=== PATIENT | male | born 1950 | race African-American/Black ===

== ENCOUNTER 2021-04-15 13:55 | Emergency (ER) | payer MEDICARE, OTHER ==
[~2021-04-15] VITALS: Ht 180.3 cm; Wt 114.0 kg
[2021-04-15] MEDS ORDERED: HYDROCODONE/ACETAMINOPHEN 5/325MG TABLET PO ONE (15:45)
[2021-04-15] MEDS ORDERED: TETANUS, DIPHTHERIA, PERTUSSIS VAC/PF 0.5ML (>10YR OLD) IM ONE (15:45)
[2021-04-15 16:03] VITALS: BP 137/70
[2021-04-15] MEDS ORDERED: BO1 TP (17:15)
[2021-04-15] MEDS ORDERED: CEPH500T MT (17:15)
[2021-04-15] MEDS ORDERED: BACITRACIN 15GM TUBE TOP ONE (17:30)
[2021-04-15] MEDS ORDERED: BACITRACIN ZINC OINT UDPKT TOP NR (17:30)
== END 2021-04-15 17:49 | disposition home or self-care (01) ==
LOC: ER 13:55
DX: S91.202A Unspecified open wound of left great toe with damage to nail, initial encounter (principal); I89.0 Lymphedema, not elsewhere classified; X58.XXXA Exposure to other specified factors, initial encounter; Y93.89 Activity, other specified; Y92.89 Other specified places as the place of occurrence of the external cause; Y99.8 Other external cause status; Z98.890 Other specified postprocedural states
CPT/HCPCS: 73620; 90471; 90715; 99283

== ENCOUNTER 2021-07-28 09:03 | Inpatient (IN) | payer MEDICARE, OTHER ==
[~2021-07-28] VITALS: Ht 170.2 cm; Wt 81.0 kg
[~2021-07-28 09:03] MED LIST: BO1 TP; MIDO5TAB4 PO; PETR85OI TOP; PRED5TAB PO; TC025U80 TOP; TRAM50TA94 MT
[2021-07-28] MEDS ORDERED: ACETAMINOPHEN 325MG TABLET PO ONE (09:45)
[2021-07-28] MEDS ORDERED: KETOROLAC 60MG/2ML VIAL IM ONE (09:45)
[2021-07-28] MEDS: LIDOCAINE 5% PATCH TOP SCH (10:13)
[2021-07-28] MEDS ORDERED: MORPHINE SULFATE 4 MG/ML CPJ (NOT FOR IM USE) IV ONE (12:30)
[2021-07-28 13:06] LABS: HEMATOCRIT. 27.4 % (42.0-52.0); MEAN CORPUSCULAR VOLUME 97.6 fL (80.0-94.0); MEAN PLATELET VOLUME 7.2 fl (7.4-10.4); PLATELET 218 x1000/uL (130-400); RED BLOOD CELL COUNT 2.81 mill/uL (4.7-6.1); RED CELL DISTRIBUTION WIDTH 15.4 % (11.6-14.6)
[2021-07-28 13:16] LABS: INR 1.3; PROTHROMBIN TIME 13.6 sec (9.6-11.0)
[2021-07-28 13:46] LABS: PLATELET ESTIMATE NORMAL
[2021-07-28 13:51] LABS: CHLORIDE 114 mEq/L (98-107)
[2021-07-28] MEDS ORDERED: POTASSIUM CHLORIDE INJ 40 MEQ in DEXT 5% WATER 250 ML IV ONE (18:45)
[2021-07-28] MEDS ORDERED: LACTATED RINGERS 1,000 ML IV SCH (18:45)
[2021-07-28] MEDS ORDERED: DOCUSATE SODIUM 100MG CAPSULE PO PRN (18:45)
[2021-07-28] MEDS ORDERED: PIPERACILLIN/TAZ 3.375G PREMIX 50 ML IV SCH (18:45)
[2021-07-28] MEDS ORDERED: GUAIFENESIN 200MG/10ML SUGAR FREE UDC PO PRN (18:45)
[2021-07-28] MEDS ORDERED: NALOXONE HCL 0.4MG/ML VIAL IV PRN (18:45)
[2021-07-28] MEDS ORDERED: ONDANSETRON HCL 4MG/2ML INJ IV PRN (18:45)
[2021-07-28] MEDS ORDERED: IPRATROPIUM/ALBUTEROL 0.5-3(2.5)MG/3ML NEB HHN PRN (18:45)
[2021-07-28] MEDS: KCL 20MEQ/100ML X 2 FOR TOTAL KCL 40MEQ/200ML IV SCH ×2 (19:40→21:32)
[2021-07-28 22:00] VITALS: BP 106/49
[2021-07-28] MEDS: LACTATED RINGERS 1,000 ML IV SCH (22:45)
[2021-07-29] VITALS: BP 102/55
[2021-07-29] MEDS: MORPHINE SULFATE 2 MG/ML CPJ (NOT FOR IM USE) IV PRN (02:58)
[2021-07-29 04:00] VITALS: BP 96/55
[2021-07-29] MEDS ORDERED: HEPARIN BOLUS PRN aPTT 37-44 IV (06:45)
[2021-07-29] MEDS ORDERED: HEPARIN BOLUS PRN aPTT <36 IV (06:45)
[2021-07-29] MEDS ORDERED: HEPARIN 80 UNITS/KG BOLUS IV SCH (06:45)
[2021-07-29] MEDS ORDERED: HEPARIN 25,000 UNITS PREMIX 250 ML IV SCH (06:45)
[2021-07-29] MEDS: PIPERACILLIN/TAZOBACTAM 3.375G in DEXT 5% WATER 50ML IV SCH ×2 (06:54→22:00)
[2021-07-29 08:00] VITALS: BP 107/61
[2021-07-29 08:07] LABS: HEMATOCRIT. 24.2 % (42.0-52.0); MEAN CORPUSCULAR HEMOGLOBIN 32.1 pg (28.0-32.0); MEAN PLATELET VOLUME 7.8 fl (7.4-10.4); PLATELET 203 x1000/uL (130-400); RED CELL DISTRIBUTION WIDTH 15.6 % (11.6-14.6)
[2021-07-29 08:46] LABS: CHLORIDE 111 mEq/L (98-107)
[2021-07-29 08:52] LABS: TOTAL IRON BINDING CAPACITY 67 ug/dL (250-450)
[2021-07-29] MEDS: LIDOCAINE 5% PATCH TOP SCH (09:00)
[2021-07-29 12:00] VITALS: BP 90/58
[2021-07-29 16:00] VITALS: BP 112/57
[2021-07-29] MEDS: LEVOFLOXACIN 500MG TABLET PO SCH (18:05)
[2021-07-29 19:01] LABS: PLATELET ESTIMATE NORMAL
[2021-07-29] MEDS ORDERED: POTASSIUM CHLORIDE 20MEQ TABLET SR PO NR (19:30)
[2021-07-29 20:00] VITALS: BP 103/64
[2021-07-29] MEDS: LACTATED RINGERS 1,000 ML IV SCH (22:10)
[2021-07-29] MEDS: ACETAMINOPHEN 325MG TABLET PO PRN (22:58)
[2021-07-30] VITALS: BP 101/64
[2021-07-30 04:00] VITALS: BP 101/62
[2021-07-30] MEDS: PIPERACILLIN/TAZOBACTAM 3.375G in DEXT 5% WATER 50ML IV SCH ×3 (05:22→21:33)
[2021-07-30 08:10] VITALS: BP 105/67
[2021-07-30 08:20] LABS: CHLORIDE 113 mEq/L (98-107)
[2021-07-30] MEDS ORDERED: LIDOCAINE HCL 1% 10 MG/ML 10ML VIAL ONE (08:26)
[2021-07-30 08:31] LABS: HEMATOCRIT. 26.2 % (42.0-52.0); HEMOGLOBIN. 8.3 g/dL (14.0-18.0); MEAN CORPUSCULAR HEMOGLOBIN 31.8 pg (28.0-32.0); MEAN CORPUSCULAR VOLUME 99.9 fL (80.0-94.0); MEAN PLATELET VOLUME 8.1 fl (7.4-10.4); PLATELET 199 x1000/uL (130-400); RED BLOOD CELL COUNT 2.62 mill/uL (4.7-6.1); RED CELL DISTRIBUTION WIDTH 16.5 % (11.6-14.6)
[2021-07-30] MEDS: LEVOFLOXACIN 500MG TABLET PO SCH (08:53)
[2021-07-30] MEDS: ACETAMINOPHEN 325MG TABLET PO PRN (08:53)
[2021-07-30] MEDS ORDERED: POLYMYXIN B SULFATE 500000 UNITS/VIAL ONE ×2 (09:03→14:27)
[2021-07-30] MEDS ORDERED: VANCOMYCIN HCL 1 GM/VIAL ONE ×2 (09:04→14:27)
[2021-07-30] MEDS ORDERED: BUPIVACAINE HCL/PF 0.25% (2.5MG/ML) 10ML ONE ×2 (09:04→14:28)
[2021-07-30 10:17] LABS: CLARITY URINE CLEAR (CLEAR); COLOR URINE YELLOW (YELLOW); KETONES URINE NEGATIVE (NEGATIVE); LEUKOCYTE ESTERASE URINE NEGATIVE (NEGATIVE); NITRITE URINE NEGATIVE (NEGATIVE); OCCULT BLOOD URINE NEGATIVE (NEGATIVE); PROTEIN URINE NEGATIVE (NEGATIVE); SPECIFIC GRAVITY URINE 1.015 (1.005-1.030); UROBILINOGEN URINE <1 E.U./dL (0.2-1.0)
[2021-07-30 10:42] LABS: INR 1.2; PARTIAL THROMBOPLASTIN TIME 28.6 sec (23.4-31.0); PROTHROMBIN TIME 12.3 sec (9.6-11.0)
[2021-07-30] MEDS: LACTATED RINGERS 1,000 ML IV SCH (11:33)
[2021-07-30] MEDS: MIDODRINE HCL 5MG TABLET PO SCH ×3 (11:33→18:05)
[2021-07-30 12:00] VITALS: BP 96/62
[2021-07-30] MEDS ORDERED: POTASSIUM CHLORIDE 20MEQ TABLET SR PO NR (13:45)
[2021-07-30] MEDS ORDERED: ALBUMIN HUMAN 25GM/100ML (25%) IV ONE (14:37)
[2021-07-30] MEDS ORDERED: CALCIUM CHLORIDE 1GM/10ML SYR IV ONE (14:37)
[2021-07-30] MEDS ORDERED: HYDROMORPHONE HCL/PF 2MG/ML CPJ IV PRN (15:30)
[2021-07-30] MEDS ORDERED: LABETALOL 5MG/ML SYR 20 MG/4 ML SYRINGE IV PRN (15:30)
[2021-07-30] MEDS ORDERED: ONDANSETRON HCL 4MG/2ML INJ IV PRN (15:30)
[2021-07-30] MEDS ORDERED: MEPERIDINE HCL/PF 25MG/ML CPJ IV PRN (15:30)
[2021-07-30] MEDS ORDERED: FENTANYL CITRATE/PF 50MCG/ML 2ML VIAL ONE (15:34)
[2021-07-30 17:35] VITALS: BP 106/53
[2021-07-30 20:00] VITALS: BP 117/64
[2021-07-30 21:29] LABS: PLATELET ESTIMATE NORMAL
[2021-07-31] VITALS (10 sets, daily range): BP systolic 85–99; BP diastolic 51–59
[2021-07-31] MEDS: ACETAMINOPHEN 325MG TABLET PO PRN (01:16)
[2021-07-31] MEDS: LACTATED RINGERS 1,000 ML IV SCH ×2 (01:47→14:55)
[2021-07-31] MEDS: PIPERACILLIN/TAZOBACTAM 3.375G in DEXT 5% WATER 50ML IV SCH ×3 (05:11→21:08)
[2021-07-31 06:17] LABS: BASOPHILS % 0.1 % (0.0-2.0); EOSINOPHILS % 0.7 % (0.0-5.0); HEMATOCRIT. 21.6 % (42.0-52.0); HEMOGLOBIN. 7.2 g/dL (14.0-18.0); LYMPHOCYTES % 8.2 % (20.0-50.0); MEAN CORPUSCULAR HEMOGLOBIN 32.4 pg (28.0-32.0); MEAN CORPUSCULAR VOLUME 97.1 fL (80.0-94.0); MEAN PLATELET VOLUME 8.1 fl (7.4-10.4); MONOCYTES % 5.4 % (2.0-8.0); NEUTROPHILS % 85.6 % (40.0-76.0); PLATELET 164 x1000/uL (130-400); RED BLOOD CELL COUNT 2.22 mill/uL (4.7-6.1)
[2021-07-31] MEDS: MIDODRINE HCL 5MG TABLET PO SCH ×3 (09:35→16:56)
[2021-07-31] MEDS ORDERED: POTASSIUM CHLORIDE 20MEQ/PACKET PO NR ×2 (11:00→14:00)
[2021-07-31 11:22] LABS: HEMATOCRIT 21.3 % (42.0-52.0)
[2021-07-31 11:31] LABS: HEMOGLOBIN 6.9 g/dL (14.0-18.0)
[2021-07-31] MEDS: FERROUS SULFATE 325MG TABLET PO SCH (14:13)
[2021-07-31] MEDS: HYDROCODONE/ACETAMINOPHEN 5/325MG TABLET PO PRN (14:13)
[2021-07-31 17:27] LABS: BASOPHILS % 0.2 % (0.0-2.0); EOSINOPHILS % 0.8 % (0.0-5.0); HEMATOCRIT. 24.1 % (42.0-52.0); HEMOGLOBIN. 7.8 g/dL (14.0-18.0); LYMPHOCYTES % 7.7 % (20.0-50.0); MEAN CORPUSCULAR HEMOGLOBIN 31.4 pg (28.0-32.0); MEAN CORPUSCULAR VOLUME 96.6 fL (80.0-94.0); MEAN PLATELET VOLUME 8.2 fl (7.4-10.4); MONOCYTES % 6.2 % (2.0-8.0); NEUTROPHILS % 85.1 % (40.0-76.0); PLATELET 150 x1000/uL (130-400); RED BLOOD CELL COUNT 2.49 mill/uL (4.7-6.1); RED CELL DISTRIBUTION WIDTH 15.7 % (11.6-14.6)
[2021-07-31 17:39] LABS: INR 1.2; PROTHROMBIN TIME 12.8 sec (9.6-11.0)
[2021-08-01] VITALS (10 sets, daily range): BP systolic 90–107; BP diastolic 52–62
[2021-08-01] MEDS: ACETAMINOPHEN 325MG TABLET PO PRN (03:18)
[2021-08-01] MEDS: LACTATED RINGERS 1,000 ML IV SCH ×3 (03:19→20:48)
[2021-08-01] MEDS: PIPERACILLIN/TAZOBACTAM 3.375G in DEXT 5% WATER 50ML IV SCH ×3 (05:31→20:48)
[2021-08-01 07:13] LABS: BASOPHILS % 0.2 % (0.0-2.0); HEMATOCRIT. 23.4 % (42.0-52.0); HEMOGLOBIN. 7.8 g/dL (14.0-18.0); LYMPHOCYTES % 9.6 % (20.0-50.0); MEAN CORPUSCULAR VOLUME 96.1 fL (80.0-94.0); MEAN PLATELET VOLUME 8.2 fl (7.4-10.4); MONOCYTES % 5.6 % (2.0-8.0); NEUTROPHILS % 83.6 % (40.0-76.0); PLATELET 145 x1000/uL (130-400); RED BLOOD CELL COUNT 2.44 mill/uL (4.7-6.1)
[2021-08-01 07:20] LABS: CHLORIDE 115 mEq/L (98-107)
[2021-08-01] MEDS ORDERED: LIDOCAINE HCL/PF 1% 10 MG/ML 5ML VIAL ONE (07:43)
[2021-08-01] MEDS ORDERED: IOHEXOL-300 100 ML BOTTLE ONE (07:44)
[2021-08-01] MEDS: MIDODRINE HCL 5MG TABLET PO SCH ×3 (09:33→17:54)
[2021-08-01] MEDS: FERROUS SULFATE 325MG TABLET PO SCH (09:33)
[2021-08-01] MEDS: HYDROCODONE/ACETAMINOPHEN 5/325MG TABLET PO PRN (09:34)
[2021-08-02] VITALS: BP 96/58
[2021-08-02 04:00] VITALS: BP 101/61
[2021-08-02] MEDS: PIPERACILLIN/TAZOBACTAM 3.375G in DEXT 5% WATER 50ML IV SCH ×3 (05:01→20:22)
[2021-08-02] MEDS: MORPHINE SULFATE 2 MG/ML CPJ (NOT FOR IM USE) IV PRN (05:30)
[2021-08-02 07:22] LABS: BASOPHILS % 0.5 % (0.0-2.0); EOSINOPHILS % 2.5 % (0.0-5.0); HEMATOCRIT. 23.1 % (42.0-52.0); HEMOGLOBIN. 7.7 g/dL (14.0-18.0); LYMPHOCYTES % 9.7 % (20.0-50.0); MEAN CORPUSCULAR HEMOGLOBIN 32.5 pg (28.0-32.0); MEAN CORPUSCULAR VOLUME 97.1 fL (80.0-94.0); MEAN PLATELET VOLUME 8.3 fl (7.4-10.4); MONOCYTES % 6.2 % (2.0-8.0); NEUTROPHILS % 81.1 % (40.0-76.0); PLATELET 151 x1000/uL (130-400); RED BLOOD CELL COUNT 2.38 mill/uL (4.7-6.1); RED CELL DISTRIBUTION WIDTH 16.3 % (11.6-14.6)
[2021-08-02 07:48] LABS: CHLORIDE 95 mEq/L (98-107)
[2021-08-02] MEDS ORDERED: POTASSIUM CHLORIDE 20MEQ TABLET SR PO NR (09:00)
[2021-08-02] MEDS: MIDODRINE HCL 5MG TABLET PO SCH ×3 (10:30→17:28)
[2021-08-02] MEDS: FERROUS SULFATE 325MG TABLET PO SCH (10:30)
[2021-08-02] MEDS: ACETAMINOPHEN 325MG TABLET PO PRN (10:32)
[2021-08-02 11:10] LABS: BASOPHILS % 0.5 % (0.0-2.0); HEMATOCRIT. 24.5 % (42.0-52.0); LYMPHOCYTES % 9.8 % (20.0-50.0); MEAN CORPUSCULAR HEMOGLOBIN 31.9 pg (28.0-32.0); MEAN PLATELET VOLUME 8.1 fl (7.4-10.4); MONOCYTES % 5.7 % (2.0-8.0); PLATELET 133 x1000/uL (130-400); RED CELL DISTRIBUTION WIDTH 16.1 % (11.6-14.6)
[2021-08-02 12:00] VITALS: BP 97/62
[2021-08-02 12:09] LABS: CHLORIDE 114 mEq/L (98-107)
[2021-08-02] MEDS: HYDROCODONE/ACETAMINOPHEN 5/325MG TABLET PO PRN (14:49)
[2021-08-02 16:00] VITALS: BP 92/52
[2021-08-02 20:00] VITALS: BP 95/54
[2021-08-02] MEDS: LACTATED RINGERS 1,000 ML IV SCH (20:22)
[2021-08-03] VITALS: BP 102/60
[2021-08-03 04:00] VITALS: BP 103/62
[2021-08-03] MEDS: PIPERACILLIN/TAZOBACTAM 3.375G in DEXT 5% WATER 50ML IV SCH (05:17)
[2021-08-03] MEDS: HYDROCODONE/ACETAMINOPHEN 5/325MG TABLET PO PRN ×2 (05:50→16:25)
[2021-08-03 06:42] LABS: BASOPHILS % 0.4 % (0.0-2.0); CHLORIDE 114 mEq/L (98-107); EOSINOPHILS % 2.2 % (0.0-5.0); HEMATOCRIT. 30.7 % (42.0-52.0); HEMOGLOBIN. 10.1 g/dL (14.0-18.0); LYMPHOCYTES % 9.1 % (20.0-50.0); MEAN CORPUSCULAR HEMOGLOBIN 32.2 pg (28.0-32.0); MEAN CORPUSCULAR VOLUME 98.1 fL (80.0-94.0); MEAN PLATELET VOLUME 8.5 fl (7.4-10.4); MONOCYTES % 5.2 % (2.0-8.0); NEUTROPHILS % 83.1 % (40.0-76.0); PLATELET 173 x1000/uL (130-400); RED BLOOD CELL COUNT 3.13 mill/uL (4.7-6.1); RED CELL DISTRIBUTION WIDTH 15.9 % (11.6-14.6)
[2021-08-03 08:00] VITALS: BP 90/51
[2021-08-03] MEDS: MIDODRINE HCL 5MG TABLET PO SCH ×3 (09:43→17:00)
[2021-08-03] MEDS: FERROUS SULFATE 325MG TABLET PO SCH (09:43)
[2021-08-03] MEDS: LACTATED RINGERS 1,000 ML IV SCH (09:43)
[2021-08-03] MEDS ORDERED: MAGNESIUM OXIDE 400MG TABLET PO NR (10:30)
[2021-08-03] MEDS: ACETAMINOPHEN 325MG TABLET PO PRN (11:08)
[2021-08-03 12:00] VITALS: BP 93/62
[2021-08-03] MEDS ORDERED: ENOXAPARIN 80MG/0.8ML SYR SUBCUT SCH (12:00)
[2021-08-03] MEDS ORDERED: LEVOFLOXACIN 500MG TABLET PO SCH (14:00)
[2021-08-03 16:00] VITALS: BP 103/60
[2021-08-03 19:29] VITALS: BP 103/60
[2021-08-04] MEDS ORDERED: MAGN400T26 PO (08:01)
[2021-08-04] MEDS ORDERED: FERR325T6 PO (08:01)
[2021-08-04] MEDS ORDERED: POTA-185 PO (08:01)
[2021-08-04] MEDS ORDERED: FURO20TA4 PO (08:01)
== END 2021-08-03 20:57 | DRG 480 ==
LOC: ER 09:26 → 6WST 13:32 → ENRESERV 19:25 → 8WST 20:27
PROVIDERS: ADMIT Family Medicine Adult Medicine; ATTEND Family Medicine Adult Medicine
PROC: 0QS704Z Reposition Left Upper Femur with Internal Fixation Device, Open Approach (ICD-10-PCS; principal; 2021-07-30)
PROC: 05HY33Z Insertion of Infusion Device into Upper Vein, Percutaneous Approach (ICD-10-PCS; 2021-07-30)
PROC: B54NZZA Ultrasonography of Left Upper Extremity Veins, Guidance (ICD-10-PCS; 2021-07-30)
PROC: 30233N1 Transfusion of Nonautologous Red Blood Cells into Peripheral Vein, Percutaneous Approach (ICD-10-PCS; 2021-07-31)
PROC: 06H03DZ Insertion of Intraluminal Device into Inferior Vena Cava, Percutaneous Approach (ICD-10-PCS; 2021-08-01)
PROC: B5191ZA Fluoroscopy of Inferior Vena Cava using Low Osmolar Contrast, Guidance (ICD-10-PCS; 2021-08-01)
PROC: B549ZZA Ultrasonography of Inferior Vena Cava, Guidance (ICD-10-PCS; 2021-08-01)
DX: S72.142A Displaced intertrochanteric fracture of left femur, initial encounter for closed fracture (principal); E43 Unspecified severe protein-calorie malnutrition; N39.0 Urinary tract infection, site not specified; G82.20 Paraplegia, unspecified; I82.432 Acute embolism and thrombosis of left popliteal vein; L97.929 Non-pressure chronic ulcer of unspecified part of left lower leg with unspecified severity; L97.919 Non-pressure chronic ulcer of unspecified part of right lower leg with unspecified severity; Z98.84 Bariatric surgery status; Z96.652 Presence of left artificial knee joint; J44.9 Chronic obstructive pulmonary disease, unspecified; I89.0 Lymphedema, not elsewhere classified; I11.0 Hypertensive heart disease with heart failure; E87.6 Hypokalemia; D64.9 Anemia, unspecified; B96.20 Unspecified Escherichia coli [E. coli] as the cause of diseases classified elsewhere; E78.5 Hyperlipidemia, unspecified; R26.9 Unspecified abnormalities of gait and mobility; R15.9 Full incontinence of feces; M54.9 Dorsalgia, unspecified; Z20.822 Contact with and (suspected) exposure to COVID-19; I25.10 Atherosclerotic heart disease of native coronary artery without angina pectoris; I50.9 Heart failure, unspecified; I87.8 Other specified disorders of veins; W18.39XA Other fall on same level, initial encounter; Y93.89 Activity, other specified; Y92.89 Other specified places as the place of occurrence of the external cause; Y99.8 Other external cause status; Z68.28 Body mass index [BMI] 28.0-28.9, adult; Z79.899 Other long term (current) drug therapy
CPT/HCPCS: 36415; 36573; 37191; 71045; 72100; 72170; 73502; 73552; 76000; 80048; 80053; 81003; 82330; 82962; 83540; 83550; 83735; 84132; 84145; 85014; 85018; 85025; 85384; 86850; 86870; 86900; 86920; 87077; 87186; 87426; 93005; 93306; 93970; 97110; 97162; 97530; 99285; C1713; C1725; C1769; C1880; J1644; J1650; J1885; J2175; J2270; J2543; J3010; J3370; J3480; J3490; J7060; J7120; P9016; P9047; Q9967

== ENCOUNTER 2021-08-03 20:25 | Inpatient (IN) | payer MEDICARE, OTHER ==
[~2021-08-03] VITALS: Ht 185.4 cm; Wt 81.9 kg
[2021-08-03 20:30] VITALS: BP 107/65
[2021-08-03 21:00] VITALS: BP 107/65
[2021-08-03] MEDS ORDERED: GUAIFENESIN 200MG/10ML SUGAR FREE UDC PO PRN (23:45)
[2021-08-03] MEDS ORDERED: ONDANSETRON HCL 4MG TABLET PO PRN (23:45)
[2021-08-03] MEDS ORDERED: DOCUSATE SODIUM 100MG CAPSULE PO PRN (23:45)
[2021-08-03] MEDS ORDERED: NALOXONE HCL 0.4 MG/ML 1ML VIAL IV PRN (23:45)
[2021-08-03] MEDS ORDERED: IPRATROPIUM/ALBUTEROL 0.5-3(2.5)MG/3ML NEB HHN PRN (23:45)
[2021-08-04] VITALS: BP 99/60
[2021-08-04] MEDS: LACTATED RINGERS 1,000 ML IV SCH ×2 (01:40→13:11)
[2021-08-04] MEDS: ACETAMINOPHEN 325MG TABLET PO PRN (01:47)
[2021-08-04] MEDS: HYDROCODONE/ACETAMINOPHEN 5/325MG TABLET PO PRN ×4 (01:49→16:14)
[2021-08-04] MEDS: ENOXAPARIN 80MG/0.8ML SYR SUBCUT SCH ×2 (05:44→17:26)
[2021-08-04 06:35] LABS: CHLORIDE 112 mEq/L (98-107)
[2021-08-04 06:57] LABS: HEMATOCRIT. 23.4 % (42.0-52.0); HEMOGLOBIN. 7.7 g/dL (14.0-18.0); MEAN CORPUSCULAR HEMOGLOBIN 32.1 pg (28.0-32.0); MEAN CORPUSCULAR VOLUME 97.6 fL (80.0-94.0); MEAN PLATELET VOLUME 7.9 fl (7.4-10.4); PLATELET 197 x1000/uL (130-400); RED CELL DISTRIBUTION WIDTH 16.2 % (11.6-14.6)
[2021-08-04 08:00] VITALS: BP 90/56
[2021-08-04] MEDS ORDERED: FURO20TA4 PO (08:01)
[2021-08-04] MEDS ORDERED: FERR325T6 PO (08:01)
[2021-08-04] MEDS ORDERED: POTA-185 PO (08:01)
[2021-08-04] MEDS ORDERED: MAGN400T26 PO (08:01)
[2021-08-04] MEDS: FERROUS SULFATE 325MG TABLET PO SCH (09:26)
[2021-08-04] MEDS: MIDODRINE HCL 5MG TABLET PO SCH ×3 (09:26→17:26)
[2021-08-04] MEDS: LEVOFLOXACIN 500MG TABLET PO SCH (11:04)
[2021-08-04 13:02] LABS: PLATELET ESTIMATE NORMAL
[2021-08-04 20:00] VITALS: BP 109/65
[2021-08-05] MEDS: LACTATED RINGERS 1,000 ML IV SCH (02:20)
[2021-08-05] MEDS: HYDROCODONE/ACETAMINOPHEN 5/325MG TABLET PO PRN ×2 (02:50→09:07)
[2021-08-05] MEDS: ENOXAPARIN 80MG/0.8ML SYR SUBCUT SCH (05:30)
[2021-08-05 06:09] LABS: CHLORIDE 112 mEq/L (98-107)
[2021-08-05 06:28] LABS: TOTAL IRON BINDING CAPACITY 118 ug/dL (250-450)
[2021-08-05 06:32] LABS: BASOPHILS % 0.3 % (0.0-2.0); EOSINOPHILS % 1.1 % (0.0-5.0); HEMATOCRIT. 22.7 % (42.0-52.0); HEMOGLOBIN. 7.4 g/dL (14.0-18.0); LYMPHOCYTES % 8.5 % (20.0-50.0); MEAN CORPUSCULAR HEMOGLOBIN 32.3 pg (28.0-32.0); MEAN CORPUSCULAR VOLUME 98.8 fL (80.0-94.0); MEAN PLATELET VOLUME 7.4 fl (7.4-10.4); MONOCYTES % 5.7 % (2.0-8.0); NEUTROPHILS % 84.4 % (40.0-76.0); PLATELET 244 x1000/uL (130-400); RED BLOOD CELL COUNT 2.29 mill/uL (4.7-6.1); RED CELL DISTRIBUTION WIDTH 16.7 % (11.6-14.6)
[2021-08-05 06:36] LABS: FOLIC ACID (FOLATE) SERUM 3.1 ng/mL (>5.38)
[2021-08-05 08:00] VITALS: BP 117/70
[2021-08-05] MEDS: MIDODRINE HCL 5MG TABLET PO SCH ×3 (09:06→17:38)
[2021-08-05] MEDS: FERROUS SULFATE 325MG TABLET PO SCH (09:06)
[2021-08-05] MEDS: LEVOFLOXACIN 500MG TABLET PO SCH (10:57)
[2021-08-05] MEDS: CYANOCOBALAMIN 1000MCG/ML VIAL IM SCH (10:59)
[2021-08-05] MEDS: FOLIC ACID 1MG TABLET PO SCH (10:59)
[2021-08-05] MEDS: HYDROCODONE/APAP 7.5/325MG 1 TAB TABLET PO PRN ×3 (14:16→23:41)
[2021-08-05 17:25] LABS: T4 FREE 0.91 ng/dL (0.76-1.46)
[2021-08-05] MEDS: ENOXAPARIN 30MG/0.3ML SYR SUBCUT SCH (17:38)
[2021-08-05] MEDS: MUPIROCIN 2% OINT 15GM NS SCH (22:18)
[2021-08-06] MEDS: ENOXAPARIN 30MG/0.3ML SYR SUBCUT SCH (07:14)
[2021-08-06 08:00] VITALS: BP 94/60
[2021-08-06] MEDS: MUPIROCIN 2% OINT 15GM NS SCH ×2 (09:00→17:00)
[2021-08-06] MEDS: CYANOCOBALAMIN 1000MCG/ML VIAL IM SCH (09:20)
[2021-08-06] MEDS: FERROUS SULFATE 325MG TABLET PO SCH (09:20)
[2021-08-06] MEDS: FOLIC ACID 1MG TABLET PO SCH (09:20)
[2021-08-06] MEDS: MIDODRINE HCL 5MG TABLET PO SCH ×3 (09:21→17:20)
[2021-08-06] MEDS: HYDROCODONE/APAP 7.5/325MG 1 TAB TABLET PO PRN ×3 (09:25→20:55)
[2021-08-06] MEDS: LEVOFLOXACIN 500MG TABLET PO SCH (11:55)
[2021-08-06 17:33] LABS: BASOPHILS % 0.5 % (0.0-2.0); EOSINOPHILS % 1.6 % (0.0-5.0); HEMATOCRIT. 23.6 % (42.0-52.0); HEMOGLOBIN. 7.6 g/dL (14.0-18.0); LYMPHOCYTES % 9.6 % (20.0-50.0); MEAN CORPUSCULAR HEMOGLOBIN 32.1 pg (28.0-32.0); MEAN CORPUSCULAR VOLUME 99.2 fL (80.0-94.0); MEAN PLATELET VOLUME 7.5 fl (7.4-10.4); MONOCYTES % 6.8 % (2.0-8.0); NEUTROPHILS % 81.5 % (40.0-76.0); PLATELET 311 x1000/uL (130-400); RED BLOOD CELL COUNT 2.38 mill/uL (4.7-6.1); RED CELL DISTRIBUTION WIDTH 17.1 % (11.6-14.6)
[2021-08-06 17:37] LABS: T4 FREE 0.9 ng/dL (0.76-1.46)
[2021-08-06 20:00] VITALS: BP 135/87
[2021-08-07] MEDS: HYDROCODONE/APAP 7.5/325MG 1 TAB TABLET PO PRN ×3 (05:09→21:25)
[2021-08-07 06:40] LABS: CHLORIDE 111 mEq/L (98-107)
[2021-08-07 06:48] LABS: BASOPHILS % 0.5 % (0.0-2.0); EOSINOPHILS % 1.6 % (0.0-5.0); HEMOGLOBIN. 8.3 g/dL (14.0-18.0); LYMPHOCYTES % 9.3 % (20.0-50.0); MEAN CORPUSCULAR HEMOGLOBIN 32.9 pg (28.0-32.0); MEAN CORPUSCULAR VOLUME 98.7 fL (80.0-94.0); MEAN PLATELET VOLUME 7.6 fl (7.4-10.4); MONOCYTES % 6.4 % (2.0-8.0); NEUTROPHILS % 82.2 % (40.0-76.0); PLATELET 342 x1000/uL (130-400); RED BLOOD CELL COUNT 2.54 mill/uL (4.7-6.1); RED CELL DISTRIBUTION WIDTH 17.1 % (11.6-14.6)
[2021-08-07] MEDS: MUPIROCIN 2% OINT 15GM NS SCH ×2 (09:00→17:00)
[2021-08-07] MEDS: CYANOCOBALAMIN 1000MCG/ML VIAL IM SCH (09:00)
[2021-08-07] MEDS: FERROUS SULFATE 325MG TABLET PO SCH (09:00)
[2021-08-07] MEDS: MIDODRINE HCL 5MG TABLET PO SCH ×3 (09:00→17:00)
[2021-08-07] MEDS: LEVOFLOXACIN 500MG TABLET PO SCH (11:00)
[2021-08-07] MEDS: GABAPENTIN 300MG CAPSULE PO SCH ×2 (15:38→21:25)
[2021-08-07] MEDS: FOLIC ACID 1MG TABLET PO SCH (15:40)
[2021-08-07] MEDS: PANTOPRAZOLE SODIUM 40 MG/VIAL IV SCH (17:00)
[2021-08-07] MEDS: ASCORBIC ACID 500 MG TABLET PO SCH (17:00)
[2021-08-07 20:00] VITALS: BP 131/74
[2021-08-07] MEDS: LEVOTHYROXINE SODIUM 25MCG TABLET PO SCH (21:24)
[2021-08-08] MEDS: HYDROCODONE/APAP 7.5/325MG 1 TAB TABLET PO PRN ×5 (01:06→14:52)
[2021-08-08] MEDS: GABAPENTIN 300MG CAPSULE PO SCH ×3 (07:07→21:38)
[2021-08-08] MEDS: LEVOTHYROXINE SODIUM 25MCG TABLET PO SCH (07:07)
[2021-08-08 08:00] VITALS: BP 125/78
[2021-08-08] MEDS: ASCORBIC ACID 500 MG TABLET PO SCH ×2 (08:43→17:34)
[2021-08-08] MEDS: CYANOCOBALAMIN 1000MCG/ML VIAL IM SCH (08:43)
[2021-08-08] MEDS: FOLIC ACID 1MG TABLET PO SCH (08:43)
[2021-08-08] MEDS: FERROUS SULFATE 325MG TABLET PO SCH (08:43)
[2021-08-08] MEDS: PANTOPRAZOLE SODIUM 40 MG/VIAL IV SCH (08:46)
[2021-08-08] MEDS: MUPIROCIN 2% OINT 15GM NS SCH ×2 (08:46→17:00)
[2021-08-08] MEDS: MIDODRINE HCL 5MG TABLET PO SCH ×3 (08:47→17:00)
[2021-08-08 17:52] LABS: BASOPHILS % 0.2 % (0.0-2.0); EOSINOPHILS % 1.1 % (0.0-5.0); HEMATOCRIT. 24.8 % (42.0-52.0); HEMOGLOBIN. 7.9 g/dL (14.0-18.0); MEAN CORPUSCULAR VOLUME 100.8 fL (80.0-94.0); MEAN PLATELET VOLUME 7.4 fl (7.4-10.4); MONOCYTES % 6.2 % (2.0-8.0); NEUTROPHILS % 84.5 % (40.0-76.0); PLATELET 350 x1000/uL (130-400); RED BLOOD CELL COUNT 2.46 mill/uL (4.7-6.1); RED CELL DISTRIBUTION WIDTH 17.3 % (11.6-14.6)
[2021-08-08 18:14] LABS: CHLORIDE 112 mEq/L (98-107)
[2021-08-08 20:00] VITALS: BP 107/66
[2021-08-09] MEDS: HYDROCODONE/APAP 7.5/325MG 1 TAB TABLET PO PRN ×3 (00:49→13:43)
[2021-08-09] MEDS: LEVOTHYROXINE SODIUM 25MCG TABLET PO SCH (06:10)
[2021-08-09] MEDS: GABAPENTIN 300MG CAPSULE PO SCH ×3 (06:10→21:19)
[2021-08-09 06:24] LABS: HEMATOCRIT 24.2 % (42.0-52.0)
[2021-08-09 08:00] VITALS: BP 118/73
[2021-08-09] MEDS: FOLIC ACID 1MG TABLET PO SCH (09:05)
[2021-08-09] MEDS: MIDODRINE HCL 5MG TABLET PO SCH ×3 (09:05→17:43)
[2021-08-09] MEDS: FERROUS SULFATE 325MG TABLET PO SCH (09:06)
[2021-08-09] MEDS: CYANOCOBALAMIN 1000MCG/ML VIAL IM SCH (09:07)
[2021-08-09] MEDS: ASCORBIC ACID 500 MG TABLET PO SCH ×2 (09:07→17:43)
[2021-08-09] MEDS ORDERED: SODIUM CHLORIDE 0.9% 500 ML IV NR (10:15)
[2021-08-09] MEDS: MUPIROCIN 2% OINT 15GM NS SCH ×2 (10:26→17:44)
[2021-08-09] MEDS: PANTOPRAZOLE SODIUM 40 MG/VIAL IV SCH (10:38)
[2021-08-09] MEDS ORDERED: LIDOCAINE HCL/PF 1% 10 MG/ML 5ML VIAL ONE (10:45)
[2021-08-09 15:53] LABS: MEAN CORPUSCULAR HEMOGLOBIN 32.4 pg (28.0-32.0); MEAN CORPUSCULAR VOLUME 103.4 fL (80.0-94.0); MEAN PLATELET VOLUME 7.9 fl (7.4-10.4); PLATELET 359 x1000/uL (130-400); RED BLOOD CELL COUNT 3.03 mill/uL (4.7-6.1); RED CELL DISTRIBUTION WIDTH 18.3 % (11.6-14.6)
[2021-08-09 16:17] LABS: HEMATOCRIT. 31.3 % (42.0-52.0); HEMOGLOBIN. 9.8 g/dL (14.0-18.0)
[2021-08-09 16:21] LABS: CHLORIDE 113 mEq/L (98-107)
[2021-08-09 17:33] LABS: PLATELET ESTIMATE NORMAL
[2021-08-09 20:00] VITALS: BP 96/59
[2021-08-10 06:27] LABS: HEMOGLOBIN. 7.4 g/dL (14.0-18.0); MEAN CORPUSCULAR VOLUME 99.2 fL (80.0-94.0); MEAN PLATELET VOLUME 7.7 fl (7.4-10.4); PLATELET 315 x1000/uL (130-400); RED BLOOD CELL COUNT 2.32 mill/uL (4.7-6.1); RED CELL DISTRIBUTION WIDTH 17.4 % (11.6-14.6)
[2021-08-10] MEDS: LEVOTHYROXINE SODIUM 25MCG TABLET PO SCH (06:52)
[2021-08-10] MEDS: GABAPENTIN 300MG CAPSULE PO SCH ×3 (06:52→22:00)
[2021-08-10] MEDS: HYDROCODONE/APAP 7.5/325MG 1 TAB TABLET PO PRN ×3 (07:00→18:18)
[2021-08-10 07:26] LABS: CHLORIDE 112 mEq/L (98-107)
[2021-08-10 08:00] VITALS: BP 105/62
[2021-08-10] MEDS: MIDODRINE HCL 5MG TABLET PO SCH ×4 (10:36→18:17)
[2021-08-10] MEDS: ASCORBIC ACID 500 MG TABLET PO SCH ×2 (10:36→17:00)
[2021-08-10] MEDS: FERROUS SULFATE 325MG TABLET PO SCH (10:36)
[2021-08-10] MEDS: PANTOPRAZOLE SODIUM 40 MG/VIAL IV SCH (10:36)
[2021-08-10] MEDS: FOLIC ACID 1MG TABLET PO SCH (10:37)
[2021-08-10] MEDS: MUPIROCIN 2% OINT 15GM NS SCH ×2 (10:41→17:00)
[2021-08-10] MEDS: CYANOCOBALAMIN 1000MCG/ML VIAL IM SCH (10:41)
[2021-08-10] MEDS: LEVOFLOXACIN 500MG TABLET PO SCH (11:40)
[2021-08-10 17:06] LABS: 25-HYDROXY VITAMIN D3 7.3 ng/mL (.)
[2021-08-10] MEDS: SULFAMETHOXAZOLE/TRIMETHOPRIM 800/160MG TABLET PO SCH (18:18)
[2021-08-10 20:00] VITALS: BP 95/64
[2021-08-10 20:00] LABS: CLARITY URINE CLEAR (CLEAR); COLOR URINE YELLOW (YELLOW); KETONES URINE NEGATIVE (NEGATIVE); LEUKOCYTE ESTERASE URINE TRACE (NEGATIVE); NITRITE URINE NEGATIVE (NEGATIVE); OCCULT BLOOD URINE NEGATIVE (NEGATIVE); PH URINE 5.5 (4.5-8.0); PROTEIN URINE NEGATIVE (NEGATIVE); SPECIFIC GRAVITY URINE 1.022 (1.005-1.030); UROBILINOGEN URINE 0.2 E.U./dL (0.2-1.0)
[2021-08-10 22:01] VITALS: BP 95/64
[2021-08-10 22:16] VITALS: BP 109/64
[2021-08-10 23:16] VITALS: BP 109/67
[2021-08-11 00:16] VITALS: BP 105/60
[2021-08-11 01:16] VITALS: BP 104/61
[2021-08-11 02:10] VITALS: BP 105/66
[2021-08-11] MEDS: ACETAMINOPHEN 325MG TABLET PO PRN (03:04)
[2021-08-11] MEDS: GABAPENTIN 300MG CAPSULE PO SCH ×3 (07:01→21:08)
[2021-08-11] MEDS: LEVOTHYROXINE SODIUM 25MCG TABLET PO SCH (07:01)
[2021-08-11 07:46] LABS: BASOPHILS % 0.4 % (0.0-2.0); EOSINOPHILS % 1.3 % (0.0-5.0); HEMATOCRIT. 28.5 % (42.0-52.0); HEMOGLOBIN. 9.4 g/dL (14.0-18.0); LYMPHOCYTES % 7.7 % (20.0-50.0); MEAN CORPUSCULAR VOLUME 96.7 fL (80.0-94.0); MEAN PLATELET VOLUME 7.4 fl (7.4-10.4); MONOCYTES % 5.6 % (2.0-8.0); PLATELET 278 x1000/uL (130-400); RED BLOOD CELL COUNT 2.95 mill/uL (4.7-6.1); RED CELL DISTRIBUTION WIDTH 17.3 % (11.6-14.6)
[2021-08-11 08:00] VITALS: BP 116/60
[2021-08-11 08:06] LABS: CHLORIDE 110 mEq/L (98-107)
[2021-08-11 08:56] LABS: PLATELET ESTIMATE NORMAL
[2021-08-11] MEDS: MUPIROCIN 2% OINT 15GM NS SCH ×2 (09:00→17:00)
[2021-08-11] MEDS: FERROUS SULFATE 325MG TABLET PO SCH (09:49)
[2021-08-11] MEDS: FOLIC ACID 1MG TABLET PO SCH (09:49)
[2021-08-11] MEDS: SULFAMETHOXAZOLE/TRIMETHOPRIM 800/160MG TABLET PO SCH ×2 (09:49→17:25)
[2021-08-11] MEDS: PANTOPRAZOLE SODIUM 40 MG/VIAL IV SCH (09:50)
[2021-08-11] MEDS: ASCORBIC ACID 500 MG TABLET PO SCH ×2 (09:50→17:25)
[2021-08-11] MEDS: CYANOCOBALAMIN 1000MCG/ML VIAL IM SCH (09:50)
[2021-08-11] MEDS: MIDODRINE HCL 5MG TABLET PO SCH ×3 (09:50→17:25)
[2021-08-11] MEDS: LEVOFLOXACIN 500MG TABLET PO SCH (10:07)
[2021-08-11] MEDS: HYDROCODONE/APAP 7.5/325MG 1 TAB TABLET PO PRN (17:26)
[2021-08-11 20:00] VITALS: BP 100/61
[2021-08-12] MEDS: HYDROCODONE/APAP 7.5/325MG 1 TAB TABLET PO PRN ×3 (04:13→14:35)
[2021-08-12] MEDS: LEVOTHYROXINE SODIUM 25MCG TABLET PO SCH (06:19)
[2021-08-12] MEDS: GABAPENTIN 300MG CAPSULE PO SCH ×3 (06:19→21:21)
[2021-08-12 07:34] LABS: HEMATOCRIT 28.7 % (42.0-52.0); HEMOGLOBIN 9.5 g/dL (14.0-18.0)
[2021-08-12 08:00] VITALS: BP 118/53
[2021-08-12] MEDS: FERROUS SULFATE 325MG TABLET PO SCH (09:32)
[2021-08-12] MEDS: MIDODRINE HCL 5MG TABLET PO SCH ×3 (09:32→17:38)
[2021-08-12] MEDS: PANTOPRAZOLE SODIUM 40 MG/VIAL IV SCH (09:32)
[2021-08-12] MEDS: ASCORBIC ACID 500 MG TABLET PO SCH ×2 (09:32→17:38)
[2021-08-12] MEDS: FOLIC ACID 1MG TABLET PO SCH (09:32)
[2021-08-12] MEDS: SULFAMETHOXAZOLE/TRIMETHOPRIM 800/160MG TABLET PO SCH ×2 (09:33→17:38)
[2021-08-12] MEDS: LEVOFLOXACIN 500MG TABLET PO SCH (11:59)
[2021-08-12 20:00] VITALS: BP 110/71
[2021-08-13] MEDS: GABAPENTIN 300MG CAPSULE PO SCH ×3 (05:29→21:29)
[2021-08-13] MEDS: HYDROCODONE/APAP 7.5/325MG 1 TAB TABLET PO PRN ×4 (05:29→21:29)
[2021-08-13 06:00] LABS: CHLORIDE 109 mEq/L (98-107)
[2021-08-13] MEDS: LEVOTHYROXINE SODIUM 25MCG TABLET PO SCH (06:21)
[2021-08-13 06:44] LABS: HEMATOCRIT. 28.3 % (42.0-52.0); HEMOGLOBIN. 9.4 g/dL (14.0-18.0); MEAN CORPUSCULAR HEMOGLOBIN 32.1 pg (28.0-32.0); MEAN CORPUSCULAR VOLUME 97.1 fL (80.0-94.0); MEAN PLATELET VOLUME 7.6 fl (7.4-10.4); PLATELET 245 x1000/uL (130-400); RED BLOOD CELL COUNT 2.91 mill/uL (4.7-6.1); RED CELL DISTRIBUTION WIDTH 17.2 % (11.6-14.6)
[2021-08-13 08:00] VITALS: BP 104/58
[2021-08-13] MEDS: SULFAMETHOXAZOLE/TRIMETHOPRIM 800/160MG TABLET PO SCH ×2 (09:30→17:29)
[2021-08-13] MEDS: ASCORBIC ACID 500 MG TABLET PO SCH ×2 (09:30→17:29)
[2021-08-13] MEDS: MIDODRINE HCL 5MG TABLET PO SCH ×3 (09:30→17:30)
[2021-08-13] MEDS: PANTOPRAZOLE SODIUM 40 MG/VIAL IV SCH (09:30)
[2021-08-13] MEDS: FOLIC ACID 1MG TABLET PO SCH (09:31)
[2021-08-13] MEDS: FERROUS SULFATE 325MG TABLET PO SCH (09:31)
[2021-08-13] MEDS ORDERED: ERGOCALCIFEROL 50000UNITS CAPSULE PO SCH (13:15)
[2021-08-13] MEDS: LEVOFLOXACIN 500MG TABLET PO SCH (14:00)
[2021-08-13 20:00] VITALS: BP 94/53
[2021-08-14] MEDS: ACETAMINOPHEN 325MG TABLET PO PRN ×3 (06:21→21:46)
[2021-08-14] MEDS: GABAPENTIN 300MG CAPSULE PO SCH ×3 (06:21→21:46)
[2021-08-14] MEDS: LEVOTHYROXINE SODIUM 25MCG TABLET PO SCH (06:22)
[2021-08-14 06:39] LABS: HEMOGLOBIN. 9.1 g/dL (14.0-18.0); MEAN CORPUSCULAR HEMOGLOBIN 32.7 pg (28.0-32.0); MEAN CORPUSCULAR VOLUME 97.7 fL (80.0-94.0); MEAN PLATELET VOLUME 7.5 fl (7.4-10.4); PLATELET 224 x1000/uL (130-400); RED BLOOD CELL COUNT 2.77 mill/uL (4.7-6.1); RED CELL DISTRIBUTION WIDTH 16.9 % (11.6-14.6)
[2021-08-14 07:44] LABS: PLATELET ESTIMATE NORMAL
[2021-08-14 08:00] VITALS: BP 91/44
[2021-08-14] MEDS: FERROUS SULFATE 325MG TABLET PO SCH (10:00)
[2021-08-14] MEDS: PANTOPRAZOLE SODIUM 40 MG/VIAL IV SCH (10:05)
[2021-08-14] MEDS: MIDODRINE HCL 5MG TABLET PO SCH ×3 (10:06→18:50)
[2021-08-14] MEDS: ASCORBIC ACID 500 MG TABLET PO SCH ×2 (10:06→18:50)
[2021-08-14] MEDS: SULFAMETHOXAZOLE/TRIMETHOPRIM 800/160MG TABLET PO SCH (10:06)
[2021-08-14] MEDS: FOLIC ACID 1MG TABLET PO SCH (10:06)
[2021-08-14] MEDS: LEVOFLOXACIN 500MG TABLET PO SCH (12:11)
[2021-08-14] MEDS ORDERED: DIAZEPAM 5 MG TABLET PO SCH (13:00)
[2021-08-14 14:22] LABS: PLATELET ESTIMATE NORMAL
[2021-08-14] MEDS ORDERED: IOHEXOL-300 100 ML BOTTLE ONE (16:59)
[2021-08-14] MEDS ORDERED: CEFEPIME 2,000 MG in DEXT 5% WATER 100 ML IV SCH (19:00)
[2021-08-14 20:00] VITALS: BP 101/49
[2021-08-14] MEDS ORDERED: VANCOMYCIN 2,000 MG in DEXT 5% WATER 500 ML IV NR (21:00)
[2021-08-14] MEDS: MEROPENEM 1,000 MG in SODIUM CHLORIDE 0.9% 100 ML IV SCH (22:33)
[2021-08-15] MEDS: MEROPENEM 1,000 MG in SODIUM CHLORIDE 0.9% 100 ML IV SCH ×3 (06:58→22:56)
[2021-08-15] MEDS: GABAPENTIN 300MG CAPSULE PO SCH ×3 (06:58→22:06)
[2021-08-15] MEDS: LEVOTHYROXINE SODIUM 25MCG TABLET PO SCH (07:14)
[2021-08-15 08:00] VITALS: BP 100/50
[2021-08-15 08:19] LABS: HEMATOCRIT. 26.1 % (42.0-52.0); HEMOGLOBIN. 8.5 g/dL (14.0-18.0); MEAN CORPUSCULAR HEMOGLOBIN 32.1 pg (28.0-32.0); MEAN CORPUSCULAR VOLUME 98.2 fL (80.0-94.0); MEAN PLATELET VOLUME 7.3 fl (7.4-10.4); PLATELET 209 x1000/uL (130-400); RED BLOOD CELL COUNT 2.65 mill/uL (4.7-6.1)
[2021-08-15] MEDS ORDERED: VANCOMYCIN 1G PREMIX 200 ML IV SCH (09:00)
[2021-08-15] MEDS: PANTOPRAZOLE SODIUM 40 MG/VIAL IV SCH (10:31)
[2021-08-15] MEDS: FERROUS SULFATE 325MG TABLET PO SCH (10:31)
[2021-08-15] MEDS: VANCOMYCIN 1G PREMIX 200 ML IV SCH ×2 (10:31→22:03)
[2021-08-15] MEDS: ASCORBIC ACID 500 MG TABLET PO SCH ×2 (10:31→17:31)
[2021-08-15] MEDS: MIDODRINE HCL 5MG TABLET PO SCH ×3 (10:32→17:31)
[2021-08-15] MEDS: FOLIC ACID 1MG TABLET PO SCH (10:32)
[2021-08-15] MEDS: HYDROCODONE/APAP 7.5/325MG 1 TAB TABLET PO PRN ×2 (10:32→15:07)
[2021-08-15 11:44] LABS: PLATELET ESTIMATE NORMAL
[2021-08-15 20:00] VITALS: BP 100/45
[2021-08-15 20:36] LABS: INR 1.1; PROTHROMBIN TIME 11.9 sec (9.6-11.0)
[2021-08-16] MEDS: GABAPENTIN 300MG CAPSULE PO SCH ×2 (05:19→14:20)
[2021-08-16] MEDS: MEROPENEM 1,000 MG in SODIUM CHLORIDE 0.9% 100 ML IV SCH ×2 (05:20→14:22)
[2021-08-16 06:28] LABS: HEMATOCRIT 27.9 % (42.0-52.0); HEMOGLOBIN 9.2 g/dL (14.0-18.0)
[2021-08-16 06:44] LABS: CHLORIDE 108 mEq/L (98-107)
[2021-08-16] MEDS: LEVOTHYROXINE SODIUM 25MCG TABLET PO SCH (07:00)
[2021-08-16 08:00] VITALS: BP 93/45
[2021-08-16] MEDS: ACETAMINOPHEN 325MG TABLET PO PRN (08:21)
[2021-08-16] MEDS: FERROUS SULFATE 325MG TABLET PO SCH (08:21)
[2021-08-16] MEDS: MIDODRINE HCL 5MG TABLET PO SCH ×2 (08:21→13:47)
[2021-08-16] MEDS: VANCOMYCIN 1G PREMIX 200 ML IV SCH (08:21)
[2021-08-16] MEDS: FOLIC ACID 1MG TABLET PO SCH (08:21)
[2021-08-16] MEDS: ASCORBIC ACID 500 MG TABLET PO SCH (08:21)
[2021-08-16] MEDS: PANTOPRAZOLE SODIUM 40 MG/VIAL IV SCH (08:21)
[2021-08-16] MEDS ORDERED: SODIUM BICARBONATE 4% (2.4MEQ) 5ML VIAL IV ONE (10:30)
[2021-08-16 14:59] LABS: BASOPHILS % 0.4 % (0.0-2.0); EOSINOPHILS % 2.8 % (0.0-5.0); HEMATOCRIT. 26.2 % (42.0-52.0); HEMOGLOBIN. 8.5 g/dL (14.0-18.0); LYMPHOCYTES % 9.1 % (20.0-50.0); MEAN CORPUSCULAR HEMOGLOBIN 31.9 pg (28.0-32.0); MEAN CORPUSCULAR VOLUME 98.1 fL (80.0-94.0); MEAN PLATELET VOLUME 6.9 fl (7.4-10.4); MONOCYTES % 6.3 % (2.0-8.0); NEUTROPHILS % 81.4 % (40.0-76.0); PLATELET 216 x1000/uL (130-400); RED BLOOD CELL COUNT 2.67 mill/uL (4.7-6.1); RED CELL DISTRIBUTION WIDTH 16.6 % (11.6-14.6)
[2021-08-16 16:09] VITALS: BP 99/52
[2021-08-18] MEDS ORDERED: CYANOCOBALAMIN 1000MCG/ML VIAL IM SCH (09:00)
== END 2021-08-16 16:40 | disposition short-term general hospital (02) | DRG 535 ==
PROVIDERS: ADMIT Physical Medicine & Rehabilitation Spinal Cord Injury Medicine; ATTEND Family Medicine Adult Medicine
PROC: 0W993ZZ Drainage of Right Pleural Cavity, Percutaneous Approach (ICD-10-PCS; 2021-08-03)
PROC: 05HY33Z Insertion of Infusion Device into Upper Vein, Percutaneous Approach (ICD-10-PCS; principal; 2021-08-09)
PROC: B54MZZA Ultrasonography of Right Upper Extremity Veins, Guidance (ICD-10-PCS; 2021-08-09)
PROC: 30233N1 Transfusion of Nonautologous Red Blood Cells into Peripheral Vein, Percutaneous Approach (ICD-10-PCS; 2021-08-10)
DX: S72.142A Displaced intertrochanteric fracture of left femur, initial encounter for closed fracture (principal); A41.51 Sepsis due to Escherichia coli [E. coli]; E43 Unspecified severe protein-calorie malnutrition; J86.9 Pyothorax without fistula; J18.9 Pneumonia, unspecified organism; I82.B12 Acute embolism and thrombosis of left subclavian vein; I82.A12 Acute embolism and thrombosis of left axillary vein; N39.0 Urinary tract infection, site not specified; G82.20 Paraplegia, unspecified; I82.622 Acute embolism and thrombosis of deep veins of left upper extremity; I82.432 Acute embolism and thrombosis of left popliteal vein; J44.0 Chronic obstructive pulmonary disease with (acute) lower respiratory infection; L02.213 Cutaneous abscess of chest wall; E87.6 Hypokalemia; R26.9 Unspecified abnormalities of gait and mobility; R53.81 Other malaise; R15.9 Full incontinence of feces; I50.9 Heart failure, unspecified; I11.0 Hypertensive heart disease with heart failure; Z98.84 Bariatric surgery status; I89.0 Lymphedema, not elsewhere classified; D53.9 Nutritional anemia, unspecified; D50.0 Iron deficiency anemia secondary to blood loss (chronic); E03.9 Hypothyroidism, unspecified; Z96.652 Presence of left artificial knee joint; M85.80 Other specified disorders of bone density and structure, unspecified site; S92.424A Nondisplaced fracture of distal phalanx of right great toe, initial encounter for closed fracture; M81.0 Age-related osteoporosis without current pathological fracture; M47.816 Spondylosis without myelopathy or radiculopathy, lumbar region; F39 Unspecified mood [affective] disorder; I25.10 Atherosclerotic heart disease of native coronary artery without angina pectoris; E53.8 Deficiency of other specified B group vitamins; G62.9 Polyneuropathy, unspecified; G89.29 Other chronic pain; M19.90 Unspecified osteoarthritis, unspecified site; Z20.822 Contact with and (suspected) exposure to COVID-19; Z95.828 Presence of other vascular implants and grafts; Z87.440 Personal history of urinary (tract) infections; Z63.4 Disappearance and death of family member; Z82.49 Family history of ischemic heart disease and other diseases of the circulatory system; Z81.1 Family history of alcohol abuse and dependence; Z63.72 Alcoholism and drug addiction in family; Z68.23 Body mass index [BMI] 23.0-23.9, adult; E55.9 Vitamin D deficiency, unspecified; M79.609 Pain in unspecified limb; R94.6 Abnormal results of thyroid function studies
CPT/HCPCS: 32555; 36415; 36573; 71045; 71046; 71260; 73502; 74177; 80048; 80053; 80202; 81003; 82040; 82270; 82306; 82533; 82607; 82728; 82746; 82962; 83540; 83550; 83615; 83986; 84134; 84145; 84155; 84439; 84443; 84481; 85014; 85018; 85025; 85044; 86376; 86850; 86870; 86900; 86920; 87426; 88108; 93970; 93971; 97110; 97162; 97166; 97530; 97535; C1725; C1769; C9113; J0692; J1650; J2185; J3370; J3420; J3490; J7050; J7060; J7120; P9016; Q0162; Q9967; A5200

== ENCOUNTER 2021-08-16 17:25 | Inpatient (IN) | payer MEDICARE, OTHER ==
[~2021-08-16] VITALS: Ht 185.4 cm; Wt 109.8 kg
[2021-08-16 16:40] VITALS: BP 106/58
[~2021-08-16 17:25] MED LIST changes: +FERR325T6 PO; +FURO20TA4 PO; +MAGN400T26 PO; +POTA-185 PO
[2021-08-16 20:30] VITALS: BP 110/65
[2021-08-16] MEDS: PIPERACILLIN/TAZOBACTAM 3.375 G in DEXTROSE 5% WATER 50 ML IV SCH (22:00)
[2021-08-17] VITALS: BP 103/58
[2021-08-17 04:00] VITALS: BP 113/54
[2021-08-17] MEDS: PIPERACILLIN/TAZOBACTAM 3.375 G in DEXTROSE 5% WATER 50 ML IV SCH ×3 (06:00→22:06)
[2021-08-17 08:00] VITALS: BP 114/72
[2021-08-17] MEDS ORDERED: MAGNESIUM/ALUMINUM HYDROXIDE/SIMETHICONE 30ML UDC PO PRN (08:45)
[2021-08-17] MEDS ORDERED: HYDROCODONE/ACETAMINOPHEN 5/325MG TABLET PO PRN (08:45)
[2021-08-17] MEDS ORDERED: CLONIDINE 0.1MG TABLET PO PRN (08:45)
[2021-08-17] MEDS ORDERED: ACETAMINOPHEN 325MG TABLET PO PRN (08:45)
[2021-08-17 09:31] LABS: CLARITY URINE CLEAR (CLEAR); COLOR URINE YELLOW (YELLOW); KETONES URINE NEGATIVE (NEGATIVE); LEUKOCYTE ESTERASE URINE TRACE (NEGATIVE); NITRITE URINE NEGATIVE (NEGATIVE); OCCULT BLOOD URINE NEGATIVE (NEGATIVE); PH URINE 6.5 (4.5-8.0); PROTEIN URINE NEGATIVE (NEGATIVE); SPECIFIC GRAVITY URINE 1.016 (1.005-1.030); UROBILINOGEN URINE 0.2 E.U./dL (0.2-1.0)
[2021-08-17 10:05] LABS: BASOPHILS % 0.6 % (0.0-2.0); EOSINOPHILS % 2.1 % (0.0-5.0); HEMATOCRIT. 29.4 % (42.0-52.0); HEMOGLOBIN. 9.5 g/dL (14.0-18.0); LYMPHOCYTES % 7.4 % (20.0-50.0); MEAN CORPUSCULAR HEMOGLOBIN 32.1 pg (28.0-32.0); MEAN CORPUSCULAR VOLUME 99.2 fL (80.0-94.0); MEAN PLATELET VOLUME 7.1 fl (7.4-10.4); NEUTROPHILS % 84.9 % (40.0-76.0); PLATELET 240 x1000/uL (130-400); RED BLOOD CELL COUNT 2.96 mill/uL (4.7-6.1); RED CELL DISTRIBUTION WIDTH 16.9 % (11.6-14.6)
[2021-08-17] MEDS: ASCORBIC ACID 500 MG TABLET PO SCH ×2 (10:12→21:10)
[2021-08-17] MEDS: PANTOPRAZOLE SODIUM 40 MG/VIAL IV SCH (10:12)
[2021-08-17] MEDS: FOLIC ACID 1MG TABLET PO SCH (10:12)
[2021-08-17] MEDS: FERROUS SULFATE 325MG TABLET PO SCH (10:12)
[2021-08-17] MEDS: MIDODRINE HCL 5MG TABLET PO SCH ×3 (10:12→17:08)
[2021-08-17 10:16] LABS: CHLORIDE 111 mEq/L (98-107)
[2021-08-17 11:01] LABS: VITAMIN B12 SERUM 1387 pg/mL (211-911)
[2021-08-17] MEDS: VANCOMYCIN 1G PREMIX 200 ML IV SCH ×2 (11:09→21:09)
[2021-08-17] MEDS: ENOXAPARIN 30MG/0.3ML SYR SUBCUT SCH ×2 (11:10→21:10)
[2021-08-17 12:00] VITALS: BP 104/67
[2021-08-17] MEDS ORDERED: ERGOCALCIFEROL 50000UNITS CAPSULE PO SCH (14:15)
[2021-08-17 16:00] VITALS: BP 119/78
[2021-08-17] MEDS ORDERED: NALOXONE HCL 0.4MG/ML VIAL IV PRN (19:15)
[2021-08-17 20:00] VITALS: BP 133/70
[2021-08-18] VITALS (7 sets, daily range): BP systolic 94–130; BP diastolic 51–79
[2021-08-18] MEDS: PIPERACILLIN/TAZOBACTAM 3.375 G in DEXTROSE 5% WATER 50 ML IV SCH ×3 (06:13→22:09)
[2021-08-18 07:37] LABS: BASOPHILS % 0.7 % (0.0-2.0); EOSINOPHILS % 2.9 % (0.0-5.0); HEMATOCRIT. 26.4 % (42.0-52.0); HEMOGLOBIN. 8.6 g/dL (14.0-18.0); MEAN CORPUSCULAR HEMOGLOBIN 31.8 pg (28.0-32.0); MEAN PLATELET VOLUME 7.6 fl (7.4-10.4); NEUTROPHILS % 77.4 % (40.0-76.0); PLATELET 245 x1000/uL (130-400); RED CELL DISTRIBUTION WIDTH 16.6 % (11.6-14.6)
[2021-08-18 07:41] LABS: CHLORIDE 107 mEq/L (98-107)
[2021-08-18 07:48] LABS: PHOSPHORUS 2.3 mg/dL (2.5-4.9)
[2021-08-18] MEDS: FOLIC ACID 1MG TABLET PO SCH (08:52)
[2021-08-18] MEDS: ASCORBIC ACID 500 MG TABLET PO SCH ×2 (08:52→21:10)
[2021-08-18] MEDS: ENOXAPARIN 30MG/0.3ML SYR SUBCUT SCH ×2 (08:52→21:11)
[2021-08-18] MEDS: FERROUS SULFATE 325MG TABLET PO SCH (08:52)
[2021-08-18] MEDS: MIDODRINE HCL 5MG TABLET PO SCH ×3 (08:52→16:41)
[2021-08-18] MEDS: VANCOMYCIN 1G PREMIX 200 ML IV SCH ×2 (09:02→21:11)
[2021-08-18] MEDS: PANTOPRAZOLE SODIUM 40 MG/VIAL IV SCH (09:02)
[2021-08-18] MEDS: FUROSEMIDE 40MG/4ML VIAL IVP SCH (13:09)
[2021-08-19] VITALS: BP 103/60
[2021-08-19 04:00] VITALS: BP 102/61
[2021-08-19] MEDS: PIPERACILLIN/TAZOBACTAM 3.375 G in DEXTROSE 5% WATER 50 ML IV SCH ×3 (05:45→21:07)
[2021-08-19 06:07] LABS: CHLORIDE 104 mEq/L (98-107)
[2021-08-19 06:26] LABS: TOTAL IRON BINDING CAPACITY 77 ug/dL (250-450)
[2021-08-19 06:50] LABS: BASOPHILS % 0.5 % (0.0-2.0); EOSINOPHILS % 2.6 % (0.0-5.0); HEMATOCRIT. 26.9 % (42.0-52.0); HEMOGLOBIN. 8.8 g/dL (14.0-18.0); LYMPHOCYTES % 11.6 % (20.0-50.0); MEAN CORPUSCULAR HEMOGLOBIN 32.2 pg (28.0-32.0); MEAN CORPUSCULAR VOLUME 98.6 fL (80.0-94.0); MEAN PLATELET VOLUME 7.6 fl (7.4-10.4); MONOCYTES % 6.1 % (2.0-8.0); NEUTROPHILS % 79.2 % (40.0-76.0); PLATELET 287 x1000/uL (130-400); RED BLOOD CELL COUNT 2.73 mill/uL (4.7-6.1); RED CELL DISTRIBUTION WIDTH 16.5 % (11.6-14.6)
[2021-08-19 07:54] VITALS: BP 91/60
[2021-08-19] MEDS: MIDODRINE HCL 5MG TABLET PO SCH ×3 (08:26→16:08)
[2021-08-19] MEDS: ASCORBIC ACID 500 MG TABLET PO SCH ×2 (08:26→20:17)
[2021-08-19] MEDS: FERROUS SULFATE 325MG TABLET PO SCH (08:26)
[2021-08-19] MEDS: FOLIC ACID 1MG TABLET PO SCH (08:27)
[2021-08-19] MEDS: FUROSEMIDE 40MG/4ML VIAL IVP SCH (08:27)
[2021-08-19] MEDS: PANTOPRAZOLE SODIUM 40 MG/VIAL IV SCH (08:27)
[2021-08-19] MEDS: ENOXAPARIN 30MG/0.3ML SYR SUBCUT SCH ×2 (08:27→20:17)
[2021-08-19] MEDS: VANCOMYCIN 1G PREMIX 200 ML IV SCH ×2 (08:30→20:17)
[2021-08-19 11:39] VITALS: BP 94/77
[2021-08-19 16:00] VITALS: BP 113/51
[2021-08-19 20:00] VITALS: BP 102/51
== END 2021-08-19 22:10 | DRG 871 ==
LOC: 7WST 17:25
PROVIDERS: ADMIT Family Medicine Adult Medicine; ATTEND Family Medicine Adult Medicine
DX: A41.9 Sepsis, unspecified organism (principal); J18.9 Pneumonia, unspecified organism; N39.0 Urinary tract infection, site not specified; G82.20 Paraplegia, unspecified; I82.B12 Acute embolism and thrombosis of left subclavian vein; I82.A12 Acute embolism and thrombosis of left axillary vein; J44.0 Chronic obstructive pulmonary disease with (acute) lower respiratory infection; J91.8 Pleural effusion in other conditions classified elsewhere; E87.8 Other disorders of electrolyte and fluid balance, not elsewhere classified; I11.0 Hypertensive heart disease with heart failure; E78.5 Hyperlipidemia, unspecified; L89.151 Pressure ulcer of sacral region, stage 1; I25.10 Atherosclerotic heart disease of native coronary artery without angina pectoris; E87.6 Hypokalemia; G89.29 Other chronic pain; D53.9 Nutritional anemia, unspecified; I89.0 Lymphedema, not elsewhere classified; E03.9 Hypothyroidism, unspecified; E55.9 Vitamin D deficiency, unspecified; I50.9 Heart failure, unspecified; R26.9 Unspecified abnormalities of gait and mobility; E53.8 Deficiency of other specified B group vitamins; Z86.718 Personal history of other venous thrombosis and embolism; Z96.652 Presence of left artificial knee joint; Z95.828 Presence of other vascular implants and grafts; Z98.84 Bariatric surgery status; Z91.81 History of falling
CPT/HCPCS: 36415; 71045; 76604; 80048; 81003; 82607; 82728; 83540; 83550; 83605; 83735; 84100; 84484; 85025; 93005; 93970; C9113; J1650; J1940; J2543; J3370; J7060

== ENCOUNTER 2021-12-02 01:30 | Inpatient (IN) | payer MEDICARE, MEDICAID ==
[2021-12-02] VITALS (59 sets, daily range): BP systolic 69–129; BP diastolic 44–68
[~2021-12-02] VITALS: Ht 180.3 cm; Wt 90.8 kg
[2021-12-02] MEDS ORDERED: ONDANSETRON HCL 4MG/2ML INJ IV STA (02:17)
[2021-12-02] MEDS ORDERED: MORPHINE SULFATE 4 MG/ML CPJ (NOT FOR IM USE) IV STA (02:17)
[2021-12-02 02:45] LABS: CHLORIDE 113 mEq/L (98-107)
[2021-12-02 03:17] LABS: HEMATOCRIT. 33.8 % (42.0-52.0); MEAN CORPUSCULAR HEMOGLOBIN 31.4 pg (28.0-32.0); MEAN CORPUSCULAR VOLUME 96.5 fL (80.0-94.0); RED CELL DISTRIBUTION WIDTH 18.5 % (11.6-14.6)
[2021-12-02] MEDS ORDERED: SODIUM CHLORIDE 0.9% 500 ML IV ONE (04:15)
[2021-12-02] MEDS ORDERED: CEFTRIAXONE 1 G PREMIX 50 ML IV NR (04:15)
[2021-12-02] MEDS ORDERED: PIPERACILLIN/TAZOBACTAM 3.375GM/50ML PREMIX IV ONE (04:15)
[2021-12-02] MEDS ORDERED: METRONIDAZOLE 500 MG PREMIX 100 ML IV NR (04:15)
[2021-12-02] MEDS ORDERED: VANCOMYCIN 1.25GM PMX (XELLIA) 250 ML IV SCH (04:15)
[2021-12-02] MEDS ORDERED: PIPERACILLIN/TAZ 3.375G PREMIX 50 ML IV NR (04:30)
[2021-12-02] MEDS ORDERED: NOREPINEPHRINE 8MG/250ML PMX 250 ML IV ONE (04:30)
[2021-12-02 05:20] LABS: INR 1.2; PROTHROMBIN TIME 12.4 sec (9.6-11.0)
[2021-12-02] MEDS ORDERED: VANCOMYCIN 1.25GM PMX (XELLIA) 250 ML IV NR (05:45)
[2021-12-02] MEDS ORDERED: MIDODRINE HCL 5MG TABLET PO ONE (06:15)
[2021-12-02] MEDS ORDERED: SODIUM CHLORIDE 0.9% 500 ML IV NR (06:15)
[2021-12-02 07:23] LABS: COLOR URINE YELLOW (YELLOW)
[2021-12-02 07:24] LABS: CLARITY URINE CLEAR (CLEAR); SPECIFIC GRAVITY URINE 1.015 (1.005-1.030)
[2021-12-02 07:26] LABS: KETONES URINE NEGATIVE (NEGATIVE); NITRITE URINE NEGATIVE (NEGATIVE); OCCULT BLOOD URINE NEGATIVE (NEGATIVE); PROTEIN URINE TRACE (NEGATIVE); UROBILINOGEN URINE 0.2 E.U./dL (0.2-1.0)
[2021-12-02 07:27] LABS: LEUKOCYTE ESTERASE URINE NEGATIVE (NEGATIVE)
[2021-12-02] MEDS: PANTOPRAZOLE SODIUM 40 MG/VIAL IV SCH (09:26)
[2021-12-02] MEDS ORDERED: ONDANSETRON HCL 4MG/2ML INJ IV PRN (11:15)
[2021-12-02] MEDS ORDERED: IPRATROPIUM/ALBUTEROL 0.5-3(2.5)MG/3ML NEB HHN PRN (11:30)
[2021-12-02] MEDS: DEXT 5%/0.45% NACL 1000ML 1,000 ML IV SCH ×2 (11:42→20:10)
[2021-12-02] MEDS: MIDODRINE HCL 5MG TABLET PO SCH ×2 (12:18→16:09)
[2021-12-02] MEDS: PIPERACILLIN/TAZOBACTAM 3.375 G in DEXTROSE 5% WATER 50 ML IV SCH ×2 (13:19→21:07)
[2021-12-02] MEDS ORDERED: SODIUM CHLORIDE 0.9% 1000ML BAG (SEPSIS BOLUS) IV NR (20:15)
[2021-12-02] MEDS ORDERED: MORPHINE SULFATE 4 MG/ML CPJ (NOT FOR IM USE) IV PRN (20:15)
[2021-12-02] MEDS: ACETAMINOPHEN 325MG TABLET PO PRN (21:06)
[2021-12-02] MEDS: HYDROCODONE/ACETAMINOPHEN 5/325MG TABLET PO PRN (21:07)
[2021-12-03] VITALS (76 sets, daily range): BP systolic 56–131; BP diastolic 29–74
[2021-12-03 04:47] LABS: HEMATOCRIT. 26.4 % (42.0-52.0); HEMOGLOBIN. 8.6 g/dL (14.0-18.0); MEAN CORPUSCULAR HEMOGLOBIN 30.9 pg (28.0-32.0); MEAN CORPUSCULAR VOLUME 94.5 fL (80.0-94.0); MEAN PLATELET VOLUME 7.9 fl (7.4-10.4); PLATELET 195 x1000/uL (130-400); RED BLOOD CELL COUNT 2.79 mill/uL (4.7-6.1); RED CELL DISTRIBUTION WIDTH 18.7 % (11.6-14.6)
[2021-12-03 05:20] LABS: CHLORIDE 111 mEq/L (98-107)
[2021-12-03] MEDS: PIPERACILLIN/TAZOBACTAM 3.375 G in DEXTROSE 5% WATER 50 ML IV SCH ×3 (05:41→21:58)
[2021-12-03] MEDS: DEXT 5%/0.45% NACL 1000ML 1,000 ML IV SCH ×2 (05:41→17:13)
[2021-12-03] MEDS ORDERED: MAGNESIUM/ALUMINUM HYDROXIDE/SIMETHICONE 30ML UDC PO SCH (07:45)
[2021-12-03] MEDS ORDERED: NITROGLYCERIN 0.4MG TABLET SL SL PRN (07:45)
[2021-12-03] MEDS: PANTOPRAZOLE SODIUM 40 MG/VIAL IV SCH (08:20)
[2021-12-03] MEDS: MIDODRINE HCL 5MG TABLET PO SCH ×3 (08:21→16:27)
[2021-12-03] MEDS ORDERED: NALOXONE HCL 0.4MG/ML VIAL IV PRN (08:30)
[2021-12-03] MEDS: HYDROCODONE/ACETAMINOPHEN 5/325MG TABLET PO PRN (08:58)
[2021-12-03 10:18] LABS: PLATELET ESTIMATE NORMAL
[2021-12-03] MEDS ORDERED: POTASSIUM CHLORIDE 20MEQ TABLET SR PO NR (13:00)
[2021-12-04] VITALS: BP 91/54
[2021-12-04] MEDS: HYDROCODONE/ACETAMINOPHEN 5/325MG TABLET PO PRN ×3 (00:23→20:11)
[2021-12-04] MEDS: DEXT 5%/0.45% NACL 1000ML 1,000 ML IV SCH ×3 (03:13→23:56)
[2021-12-04 04:00] VITALS: BP 92/60
[2021-12-04] MEDS: PIPERACILLIN/TAZOBACTAM 3.375 G in DEXTROSE 5% WATER 50 ML IV SCH ×2 (05:10→17:37)
[2021-12-04 06:52] LABS: HEMATOCRIT. 28.1 % (42.0-52.0); HEMOGLOBIN. 8.7 g/dL (14.0-18.0); MEAN CORPUSCULAR HEMOGLOBIN 30.3 pg (28.0-32.0); MEAN CORPUSCULAR VOLUME 97.5 fL (80.0-94.0); MEAN PLATELET VOLUME 8.5 fl (7.4-10.4); PLATELET 178 x1000/uL (130-400); RED BLOOD CELL COUNT 2.88 mill/uL (4.7-6.1); RED CELL DISTRIBUTION WIDTH 19.4 % (11.6-14.6)
[2021-12-04 07:12] LABS: CHLORIDE 111 mEq/L (98-107)
[2021-12-04 08:00] VITALS: BP 86/62
[2021-12-04 08:12] LABS: HIV SCREEN 4G Non Reactive (Non Reactive)
[2021-12-04] MEDS ORDERED: POTASSIUM CHLORIDE 20MEQ/PACKET PO NR (08:15)
[2021-12-04 08:55] LABS: PLATELET ESTIMATE NORMAL
[2021-12-04] MEDS: MIDODRINE HCL 5MG TABLET PO SCH ×3 (09:28→17:02)
[2021-12-04] MEDS: PANTOPRAZOLE SODIUM 40 MG/VIAL IV SCH (09:28)
[2021-12-04 11:28] VITALS: BP 100/60
[2021-12-04] MEDS: ACETAMINOPHEN 325MG TABLET PO PRN (11:29)
[2021-12-04] MEDS ORDERED: CEFTRIAXONE 1 G PREMIX 50 ML IV SCH (15:15)
[2021-12-04 16:00] VITALS: BP 93/57
[2021-12-04] MEDS: CEFTRIAXONE 1,000 MG in DEXTROSE 5% WATER 50 ML IV SCH (16:55)
[2021-12-04 20:00] VITALS: BP 98/52
[2021-12-04] MEDS: METRONIDAZOLE 500MG TABLET PO SCH (20:10)
[2021-12-05] VITALS: BP 95/55
[2021-12-05 04:00] VITALS: BP 91/54
[2021-12-05 07:21] LABS: BASOPHILS % 0.5 % (0.0-2.0); EOSINOPHILS % 1.7 % (0.0-5.0); HEMATOCRIT. 29.1 % (42.0-52.0); HEMOGLOBIN. 9.2 g/dL (14.0-18.0); LYMPHOCYTES % 10.1 % (20.0-50.0); MEAN CORPUSCULAR HEMOGLOBIN 30.6 pg (28.0-32.0); MEAN CORPUSCULAR VOLUME 97.2 fL (80.0-94.0); MEAN PLATELET VOLUME 8.4 fl (7.4-10.4); NEUTROPHILS % 82.7 % (40.0-76.0); PLATELET 169 x1000/uL (130-400); RED BLOOD CELL COUNT 2.99 mill/uL (4.7-6.1); RED CELL DISTRIBUTION WIDTH 18.7 % (11.6-14.6)
[2021-12-05 08:00] VITALS: BP 97/54
[2021-12-05] MEDS: DEXT 5%/0.45% NACL 1000ML 1,000 ML IV SCH (10:05)
[2021-12-05] MEDS: PANTOPRAZOLE SODIUM 40 MG/VIAL IV SCH (10:05)
[2021-12-05] MEDS: MIDODRINE HCL 5MG TABLET PO SCH ×3 (10:05→16:09)
[2021-12-05] MEDS: METRONIDAZOLE 500MG TABLET PO SCH (10:05)
[2021-12-05 11:14] LABS: CHLORIDE 110 mEq/L (98-107)
[2021-12-05 12:00] VITALS: BP 112/69
[2021-12-05] MEDS: CEFTRIAXONE 1,000 MG in DEXTROSE 5% WATER 50 ML IV SCH (14:21)
[2021-12-05 16:00] VITALS: BP 93/57
[2021-12-05 16:40] VITALS: BP 93/57
== END 2021-12-05 18:22 | DRG 871 ==
LOC: ER 02:11 → EDBEDREQTM 04:20 → EDBEDREQSVC 04:20 → EDBEDREQ 04:20 → MICUNO 06:15 → EDBEDREQTM 06:17 → EDBEDREQ 06:17 → ENRESERV 06:31 → 6WST 12-03 19:30
PROVIDERS: ADMIT Family Medicine Adult Medicine; ATTEND Family Medicine Adult Medicine
PROC: 05HY33Z Insertion of Infusion Device into Upper Vein, Percutaneous Approach (ICD-10-PCS; principal; 2021-12-02)
DX: A41.51 Sepsis due to Escherichia coli [E. coli] (principal); E43 Unspecified severe protein-calorie malnutrition; R65.21 Severe sepsis with septic shock; K80.00 Calculus of gallbladder with acute cholecystitis without obstruction; I50.32 Chronic diastolic (congestive) heart failure; E87.20 Acidosis, unspecified; I11.0 Hypertensive heart disease with heart failure; Z20.822 Contact with and (suspected) exposure to COVID-19; J44.9 Chronic obstructive pulmonary disease, unspecified; E87.8 Other disorders of electrolyte and fluid balance, not elsewhere classified; E78.5 Hyperlipidemia, unspecified; R74.01 Elevation of levels of liver transaminase levels; D64.9 Anemia, unspecified; I89.0 Lymphedema, not elsewhere classified; I95.9 Hypotension, unspecified; E03.9 Hypothyroidism, unspecified; G89.29 Other chronic pain; I25.10 Atherosclerotic heart disease of native coronary artery without angina pectoris; K82.8 Other specified diseases of gallbladder; Z98.84 Bariatric surgery status; Z68.27 Body mass index [BMI] 27.0-27.9, adult; Z86.718 Personal history of other venous thrombosis and embolism; Z95.828 Presence of other vascular implants and grafts; Z74.01 Bed confinement status; Z87.891 Personal history of nicotine dependence; Z96.652 Presence of left artificial knee joint
CPT/HCPCS: 36415; 36573; 71045; 74176; 76705; 80048; 80053; 80061; 80076; 81003; 83605; 83735; 84484; 85025; 87077; 87186; 87389; 87426; 93005; 93306; 93970; 97162; 99291; A6261; C1725; C1892; C9113; J0696; J2270; J2405; J2543; J3370; J3490; J7040; J7060